=== PATIENT | female | born 1995 | race African-American/Black ===

== ENCOUNTER 2018-01-23 18:18 | Inpatient (IN) ==
[2018-01-23] MEDS ORDERED: Sod Chloride 0.9% Inj 1,000 ML IV.SIG ONE (18:40)
[2018-01-23 19:38] LABS: Anion Gap 10 meq/L (5-15); Blood Urea Nitrogen 5 mg/dL (7-18); Calcium 8.5 mg/dL (8.5-10.1); Carbon Dioxide 23.3 meq/L (21.0-32.0); Chloride 107 meq/L (98-107); Glomerular Filtration Rate Greater Than 89 mL/min (>89); Glucose,Random 87 mg/dL (74-106); Potassium 3.8 meq/L (3.5-5.1); Sodium 140 meq/L (136-145)
[2018-01-23 20:11] LABS: Baso % (Auto) 0.4 % (0.0-2.0); Eos # (Auto) 0.1 th/mm3 (0.0-0.4); Eos % (Auto) 2.1 % (0.0-4.0); Hematocrit 25.4 % (35.0-46.0); Hemoglobin 7.4 gm/dL (11.6-15.3); Lymph # (Auto) 1.7 th/mm3 (1.0-4.8); Lymph % (Auto) 25.4 % (9.0-44.0); Mean Corpuscular Hemoglobin 18.8 pg (27.0-34.0); Mean Corpuscular Volume 64.3 fL (80.0-100.0); Mean Platelet Volume 8.3 fL (7.0-11.0); Mono # (Auto) 0.5 th/mm3 (0.0-0.9); Mono % (Auto) 7.8 % (0.0-8.0); Neut # (Auto) 4.4 th/mm3 (1.8-7.7); Neut % (Auto) 64.3 % (16.0-70.0); Platelet Count 421 th/mm3 (150-450); Red Blood Count 3.95 mil/mm3 (4.00-5.30); White Blood Count 6.9 th/mm3 (4.0-11.0)
[2018-01-23 20:12] LABS: Mean Corpuscular HGB Conc 29.3 % (32.0-36.0)
[2018-01-23 20:50] LABS: Bacteria,Urine Occasional /hpf; Bilirubin,Urine Negative (Negative); Clarity,Urine Cloudy (Clear); Color,Urine Yellow (Yellw/Straw); Glucose,Urine (UA) Negative (Negative); Hyaline Casts,Urine 8 /lpf (0-3); Leukocyte Esterase,Urine Moderate (Negative); Mucus,Urine Few /lpf (Occasional); Nitrite,Urine Negative (Negative); Specific Gravity,Urine 1.008 (1.002-1.035); Squamous Epithelial Cell,Urine 11 /hpf (0-5)
--- NOTE | 2018-01-23 21:00 | CT ---
EXAM DATE: 01/23/2018 8:58 PM EDT AGE/SEX: 22 years / Female INDICATIONS: Syncopal episode, cephalgia. CLINICAL DATA: This is the patient's initial encounter. Patient reports that signs and symptoms have been present for 1 day and indicates a pain score of 7/10. MEDICAL/SURGICAL HISTORY: Hypertension. None. RADIATION DOSE: 36.42 CTDI (mGy) COMPARISON: No prior exams available for comparison. TECHNIQUE: CT of the head without contrast. Using automated exposure control and adjustment of the mA and/or kV according to patient size, radiation dose was kept as low as reasonably achievable to ob tain optimal diagnostic quality images. DICOM format image data is available electronically for revi ew and comparison. FINDINGS: Cerebrum: The ventricles are normal for age. No evidence of midline shift, mass lesion, hemorrhage or acute infarction. No extraaxial fluid collections are seen. Posterior Fossa: The cerebellum and brainstem are intact. The 4th ventricle is midline. The cerebe llopontine angle is unremarkable. Extracranial: The visualized portion of the orbits is intact. Skull: The calvaria is intact. No evidence of skull fracture. CONCLUSION: 1. Negative noncontrast CT brain. . Electronically signed by: Alex Carpio MD 01/23/2018 8:59 PM EDT
--- NOTE | 2018-01-23 21:06 | ED ---
HPI General Chief Complaint: Syncope Stated Complaint: Syncope Time Seen by Provider: 01/23/18 18:40 Source: patient Mode of arrival: EMS Limitations: no limitations History of Present Illness HPI narrative: The patient is 22 years old and arrives here with complaint of syncope. She arrives by EMS. 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 No fecal or urinary incontinence. No history of seizures. The patient reports headaches over the past few days. No chest pain prior to the syncope event. Patient reports normal activity and state of health over the past few days and into today's workout routine. No prior episode of syncope. Past medical history of significance. She reports occasional black stool. Patient reports heavy menstruation. MD complaint: loss of consciousness -: second(s) Prodromal symptoms: none Witnessed: yes - by bystander Context: during exertion Injuries sustained associated with event: none Current symptoms: headache Related Data Home Medications Medication Instructions Recorded Confirmed No Known Home Medications 01/23/18 01/23/18 Allergies Allergy/AdvReac Type Severity Reaction Status Date / Time No Known Allergies Allergy Verified 01/23/18 18:28 Review of Systems ROS: all other systems reviewed are negative [facility] Medical History Medical History Hypertension (Acute) Social History Social History Substance History: No History of Abuse Second Hand Smoke Exposure: No Smoking Status: Never smoker How Often Do You Have a Drink Containing Alcohol: Never Recent Travel in [facility] within the Last 8 Weeks: No Recent Out of Country Travel within the Last 8 Weeks: No Immunization History Tetanus Immunization: Unsure Exam Narrative Exam Narrative: GENERAL: 22-year-old female pleasant well-nourished well- developed SKIN: Focused skin assessment warm/dry. HEAD: Atraumatic. Normocephalic. EYES: Pupils equal and round. No scleral icterus. No injection or drainage. ENT: No nasal bleeding or discharge. Mucous membranes pink and moist. NECK: Trachea midline. No JVD. CARDIOVASCULAR: Heart rate approximately 90. Regular rhythm. RESPIRATORY: No accessory muscle use. Clear to auscultation. Breath sounds equal bilaterally. GASTROINTESTINAL: Abdomen soft, non-tender, nondistended. Hepatic and splenic margins not palpable. MUSCULOSKELETAL: No obvious deformities. No clubbing. No cyanosis. No edema. NEUROLOGICAL: Awake and alert. No obvious cranial nerve deficits. Motor grossly within normal limits. Normal speech. PSYCHIATRIC: Appropriate mood and affect; insight and judgment normal. Course Reevaluation(s) Reevaluation #1: Patient resting comfortably. Urinalysis specimen provided. Patient denies a history of anemia. She has no known record of blood draw with results she can recall. She reports occasional black stool and heavy menstruation. She reports blood in urine occasionally. Time: 20:15 Initial Documented Vital Signs Pulse Rate 84 01/23/18 18:24 Respiratory Rate 18 01/23/18 18:24 Pulse Oximetry 99 01/23/18 18:24 Last Documented Vital Signs Pulse Rate 89 01/23/18 18:59 Respiratory Rate 16 01/23/18 18:59 Blood Pressure 117/72 01/23/18 18:59 Pulse Oximetry 100 01/23/18 18:59 Medical Decision Making MDM Narrative Medical Screen Exam Complete: Yes Emergency Medical Condition: Yes Medical Records Medical records reviewed: Yes I reviewed the patient's medical records. 22-year-old female arrives following syncope event. Workup reveals anemia with a hemoglobin of 7.4. The patient has no prior history of anemia. Etiology of clear. The headache patient complains in the ED and over the past few months could be related to anemia. Admission for blood transfusion and w/u per discretion [facility] . 2 units ordered here in the ED. Case is Dr. Gerber for the hospital service. Lab Data Lab results reviewed: Yes I reviewed the patient's lab results. Result diagrams: 01/23/18 19:00 01/23/18 19:00 Lab Results 01/23/18 01/23/18 01/23/18 Range/Units 19:00 19:00 20:30 WBC 6.9 (4.0-11.0) th/mm3 RBC 3.95 L (4.00-5.30) mil/mm3 Hgb 7.4 L (11.6-15.3) gm/dL Hct 25.4 L (35.0-46.0) % MCV 64.3 L (80.0-100.0) fL MCH 18.8 L (27.0-34.0) pg MCHC 29.3 L (32.0-36.0) % RDW 19.0 H (11.6-17.2) % Plt Count 421 (150-450) th/mm3 MPV 8.3 (7.0-11.0) fL Neut % (Auto) 64.3 (16.0-70.0) % Lymph % (Auto) 25.4 (9.0-44.0) % [place] % (Auto) 7.8 (0.0-8.0) % Eos % (Auto) 2.1 (0.0-4.0) % Baso % (Auto) 0.4 (0.0-2.0) % Neut # (Auto) 4.4 (1.8-7.7) th/mm3 Lymph # (Auto) 1.7 (1.0-4.8) th/mm3 [place] # (Auto) 0.5 (0.0-0.9) th/mm3 Eos # (Auto) 0.1 (0.0-0.4) th/mm3 Baso # (Auto) 0.0 (0.0-0.2) th/mm3 WBC Differential . Differential Comment Auto diff final Sodium 140 (136-145) meq/L Potassium 3.8 (3.5-5.1) meq/L Chloride 107 (98-107) meq/L Carbon Dioxide 23.3 (21.0-32.0) meq/L Anion Gap 10 (5-15) meq/L BUN 5 L (7-18) mg/dL Creatinine 0.64 (0.50-1.00) mg/dL Estimated GFR Greater than 89 (>89) mL/min Random Glucose 87 (74-106) mg/dL Calcium 8.5 (8.5-10.1) mg/dL Troponin I Less than 0.02 L (0.02-0.05) ng/mL Urine Color Yellow (Yellw/Straw) Urine Clarity Cloudy H (Clear) Urine pH 7.0 (5.0-8.5) Ur Specific [place] 1.008 (1.002-1.035) Urine Protein 30 H (Neg-Trace) mg/dL Urine Glucose (UA) Negative (Negative) mg/dL Urine Ketones Negative (Negative) mg/dL Urine Occult Blood Moderate H (Negative) Urine Nitrate Negative (Negative) Urine Bilirubin Negative (Negative) Urine Urobilinogen Less than 2 (Less than 2) mg/dL Ur Leukocyte Esterase Moderate H (Negative) Urine RBC 3 (0-3) /hpf Urine WBC 13 H (0-5) /hpf Ur Squamous Epith Cells 11 (0-5) /hpf Urine Bacteria Occasional H (None) /hpf Hyaline Casts 8 (0-3) /lpf Granular Casts 7 (None) /lpf Urine Mucus Few H (Occasional) /lpf Ur Microscopic Review Not Reportable Urinalysis concerning for UTI ECG Data EKG Prior to Arrival: Yes Attestation: I personally reviewed and interpreted this ECG as follows: Discharge Plan Discharge Disposition Patient Disposition: 30 Still Patient Physicians Team ED Provider: Doc Gr Primary Care Provider: Primary Care ZeinabiBinta Rxs /Orders / Referrals /Forms Prescriptions: No Action No Known Home Medications RF: 0 Discharge Interventions Interventions: Vital Signs Last Done: 01/23/18 18:59 Status ED Status: Admitted Observation Patient Discharge Information Discharge Date/Time: 01/23/18 19:20
[2018-01-23] MEDS ORDERED: Bisacodyl 10 MG Supp RECTAL PRN (21:46)
[2018-01-23] MEDS ORDERED: Acetaminophen 325 MG Tablet PO PRN (21:46)
[2018-01-23] MEDS ORDERED: Temazepam 15 MG Capsule PO PRN (21:46)
--- NOTE | 2018-01-23 21:51 | P.HP ---
History of Present Illness Service: [facility] Primary Care Physician: No Primary Care Physician History of Present Illness: 22-year-old female with no past medical history presents to the emergency department for evaluation of syncopal episode. The patient arrived via EMS. 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 She denies any seizure-like activity or urinary/fecal incontinence. She reports a continuing headache. Denies any chest pain or shortness of breath. Has had positive fatigue for the past several weeks. No abdominal pain. No nausea/vomiting/diarrhea. No fever/ chills. The patient does report that 3 months ago she had some dark, tarry stools that has since resolved. She also reports that she has heavy bleeding with her menses. She is not currently having any vaginal bleeding. Inpatient Certification: I certify that the inpatient services were ordered in accordance with Medicare regulations governing the order. 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 - Medical / Surgical Hx Neg / Unobtainable Surgical History: No Previous Surgery - Medical History Medical History: Medical History (Last Updated 01/23/18 @ 18:27 by Susan Bhatti) Hypertension - Family History Family History: Family History (Last Updated 01/23/18 @ 21:47 by Karen Gerber MD) Other Family history normal - Tobacco History Second Hand Smoke Exposure: No Smoking Status: Never smoker - Alcohol History How Often Do You Have a Drink Containing Alcohol: Never - Substance Use History Substance History: No History of Abuse - Travel History Recent Travel in the [place] Within the Last 8 Weeks: No Recent Travel Out of the Country Within the Last 8 Weeks: No - Immunization History Tetanus Immunization: Unsure Medications and Allergies Allergies Allergy/AdvReac Type Severity Reaction Status Date / Time No Known Allergies Allergy Verified 01/23/18 18:28 Home Medications Medication Instructions Recorded Confirmed Type No Known Home Medications 01/23/18 01/23/18 History Exam Vital signs: Vital Signs 01/23/18 18:24 01/23/18 18:44 01/23/18 18:59 Pulse Rate 84 89 Respiratory Rate 18 16 Blood Pressure 117/72 Pulse Oximetry 99 99 100 Intake & Output 01/23/18 01/23/18 01/24/18 06:59 18:59 06:59 Weight 67.132 kg Narrative: Gen.: No acute distress Head: Normocephalic. Atraumatic. EENT: Pupils equal round and reactive to light. Nose without drainage. Airway intact. Throat without injection. Cardiovascular: Regular rate and rhythm. No murmurs, rubs or gallops. Respiratory: Lungs clear to auscultation bilaterally. No wheezes or rhonchi. Abdomen: Soft, nontender, nondistended. No peritoneal signs. Musculoskeletal: No gross deformities. No edema. Skin: No obvious rashes or erythema. Neuro: Sensory and motor grossly intact. Cranial nerves II through XII grossly intact. Results - Labs CBC & Chem 7: 01/23/18 19:00 01/23/18 19:00 Labs: Laboratory Results - last 24 hr 01/23/18 01/23/18 01/23/18 19:00 19:00 20:30 WBC 6.9 RBC 3.95 L Hgb 7.4 L Hct 25.4 L MCV 64.3 L MCH 18.8 L MCHC 29.3 L RDW 19.0 H Plt Count 421 MPV 8.3 Neut % (Auto) 64.3 Lymph % (Auto) 25.4 [place] % (Auto) 7.8 Eos % (Auto) 2.1 Baso % (Auto) 0.4 Neut # (Auto) 4.4 Lymph # (Auto) 1.7 [place] # (Auto) 0.5 Eos # (Auto) 0.1 Baso # (Auto) 0.0 WBC Differential . Differential Comment Auto diff final Sodium 140 Potassium 3.8 Chloride 107 Carbon Dioxide 23.3 Anion Gap 10 BUN 5 L Creatinine 0.64 Estimated GFR Greater than 89 Random Glucose 87 Calcium 8.5 Troponin I Less than 0.02 L Urine Color Yellow Urine Clarity Cloudy H Urine pH 7.0 Ur Specific [place] 1.008 Urine Protein 30 H Urine Glucose (UA) Negative Urine Ketones Negative Urine Occult Blood Moderate H Urine Nitrate Negative Urine Bilirubin Negative Urine Urobilinogen Less than 2 Ur Leukocyte Esterase Moderate H Urine RBC 3 Urine WBC 13 H Ur Squamous Epith Cells 11 Urine Bacteria Occasional H Hyaline Casts 8 Granular Casts 7 Urine Mucus Few H Ur Microscopic Review Not Reportable MTS Gel Crossmatch 01/23/18 20:45 WBC RBC Hgb Hct MCV MCH MCHC RDW Plt Count MPV Neut % (Auto) Lymph % (Auto) [place] % (Auto) Eos % (Auto) Baso % (Auto) Neut # (Auto) Lymph # (Auto) [place] # (Auto) Eos # (Auto) Baso # (Auto) WBC Differential Differential Comment Sodium Potassium Chloride Carbon Dioxide Anion Gap BUN Creatinine Estimated GFR Random Glucose Calcium Troponin I Urine Color Urine Clarity Urine pH Ur Specific [place] Urine Protein Urine Glucose (UA) Urine Ketones Urine Occult Blood Urine Nitrate Urine Bilirubin Urine Urobilinogen Ur Leukocyte Esterase Urine RBC Urine WBC Ur Squamous Epith Cells Urine Bacteria Hyaline Casts Granular Casts Urine Mucus Ur Microscopic Review MTS Gel Crossmatch See Detail - Imaging Impressions Head CT 01/23/18 18:40 CONCLUSION: 1. Negative noncontrast CT brain. . Caprini VTE Risk Assessment Caprini VTE Risk Assessment: Moderate/High Risk (score >= 2) Caprini Risk Assessment Model: Point Value = 1 Point Value = 2 Point Value = 3 Point Value = 5 Age 41-60 Minor surgery BMI > 25 kg/m2 Swollen legs Varicose veins or History of unexplained or recurrent spontaneous Oral contraceptives or hormone replacement Sepsis (< 1 month) Serious lung disease, including pneumonia (< 1 month) Abnormal pulmonary function Acute myocardial infarction Congestive heart failure (< 1 month) History of inflammatory bowel disease Medical patient at bed rest Age 61-74 Arthroscopic surgery Major open surgery (> 45 min) Laparoscopic surgery (> 45 min) Malignancy Confined to bed (> 72 hours) Immobilizing plaster cast Central venous access Age >= 75 History of VTE Family history of VTE Factor V Leiden Prothrombin [id number] Lupus anticoagulant Anticardiolipin antibodies Elevated serum homocysteine Heparin-induced thrombocytopenia Other congenital or acquired thrombophilia Stroke (< 1 month) Elective arthroplasty Hip, pelvis, or leg fracture Acute spinal cord injury (< 1 month) Prophylaxis Regimen: Total Risk Factor Score Risk Level Prophylaxis Regimen 0-1 Low Early ambulation 2 Moderate Order ONE of the following: *Sequential Compression Device (SCD) *Heparin 5000 units SQ BID 3-4 Higher Order ONE of the following medications: *Heparin 5000 units SQ TID *Enoxaparin/Lovenox 40 mg SQ daily (WT < 150 kg, CrCl > 30 mL/min) *Enoxaparin/Lovenox 30 mg SQ daily (WT < 150 kg, CrCl > 10-29 mL/min) *Enoxaparin/Lovenox 30 mg SQ BID (WT < 150 kg, CrCl > 30 mL/min) AND/OR *Sequential Compression Device (SCD) 5 or more Highest Order ONE of the following medications: *Heparin 5000 units SQ TID (Preferred with Epidurals) *Enoxaparin/Lovenox 40 mg SQ daily (WT < 150 kg, CrCl > 30 mL/min) *Enoxaparin/Lovenox 30 mg SQ daily (WT < 150 kg, CrCl > 10-29 mL/min) *Enoxaparin/Lovenox 30 mg SQ BID (WT < 150 kg, CrCl > 30 mL/min) AND *Sequential Compression Device (SCD) Assessment and Plan - Plan Assessment/plan: 1. Symptomatic anemia/syncope Head CT negative for acute process H&H 7.4/25.4, no basis for comparison Transfuse 2 units packed red blood cells Hemoccult negative in the emergency department Suspect secondary to menorrhagia, patient will need outpatient [employer] follow-up FEN Regular diet Electrolytes: Monitor and replete as needed
[2018-01-24] MEDS: Sod Chloride 0.9% Inj 1,000 ML IV.CONT SCH ×2 (02:26→08:16)
--- NOTE | 2018-01-24 08:29 | P.PNIM ---
Subjective Interval history: f/u; syncope in no acute distress. resting comfortably with no dizziness, chest pain or sob. reports occasional dysuria. Physical Exam Vital signs: Vital Signs 01/23/18 18:24 01/23/18 18:44 01/23/18 18:59 Temperature Pulse Rate 84 89 Respiratory Rate 18 16 Blood Pressure 117/72 Pulse Oximetry 99 99 100 01/23/18 23:51 01/24/18 00:09 01/24/18 02:24 Temperature 98.3 F 98.2 F 97.9 F Pulse Rate 85 76 78 Respiratory Rate 16 16 14 Blood Pressure 111/57 L 122/64 125/74 Pulse Oximetry 100 100 01/24/18 07:30 Temperature Pulse Rate 68 Respiratory Rate 15 Blood Pressure 124/79 Pulse Oximetry 100 Intake & Output 01/23/18 01/24/18 01/24/18 18:59 06:59 18:59 Intake Total 1400 / 1400 600 / 600 Balance 1400 / 1400 600 / 600 Weight 67.132 kg Intake: IV 1000 / 1000 600 / 600 NS Inj 1,000 ML @ 100 mls/hr IV 600 / 600 .CONT .Q10H [facility] Rx#:[id number] Intake (Blood Product) Amt 400 / 400 Rbc As-3 Leukoreduced Unit 400 / 400 [id number] - Constitutional no acute distress - Routine Respiratory Exam Present: CTA bilaterally - Routine Cardiovascular Exam Present: RRR - Routine Abdominal Exam Present: soft - Routine Extremities Exam Comments: no pedal edema. - Routine Neurological Exam Present: alert, oriented X3 Results - Labs CBC & Chem 7: 01/23/18 19:00 01/23/18 19:00 Laboratory Results - last 24 hr 01/23/18 01/23/18 01/23/18 19:00 19:00 20:30 WBC 6.9 RBC 3.95 L Hgb 7.4 L Hct 25.4 L MCV 64.3 L MCH 18.8 L MCHC 29.3 L RDW 19.0 H Plt Count 421 MPV 8.3 Neut % (Auto) 64.3 Lymph % (Auto) 25.4 [place] % (Auto) 7.8 Eos % (Auto) 2.1 Baso % (Auto) 0.4 Neut # (Auto) 4.4 Lymph # (Auto) 1.7 [place] # (Auto) 0.5 Eos # (Auto) 0.1 Baso # (Auto) 0.0 WBC Differential . Differential Comment Auto diff final Sodium 140 Potassium 3.8 Chloride 107 Carbon Dioxide 23.3 Anion Gap 10 BUN 5 L Creatinine 0.64 Estimated GFR Greater than 89 Random Glucose 87 Calcium 8.5 Troponin I Less than 0.02 L Urine Color Yellow Urine Clarity Cloudy H Urine pH 7.0 Ur Specific [place] 1.008 Urine Protein 30 H Urine Glucose (UA) Negative Urine Ketones Negative Urine Occult Blood Moderate H Urine Nitrate Negative Urine Bilirubin Negative Urine Urobilinogen Less than 2 Ur Leukocyte Esterase Moderate H Urine RBC 3 Urine WBC 13 H Ur Squamous Epith Cells 11 Urine Bacteria Occasional H Hyaline Casts 8 Granular Casts 7 Urine Mucus Few H Ur Microscopic Review Not Reportable Blood Type Blood Type Recheck Antibody Screen MTS Gel Crossmatch 01/23/18 20:45 WBC RBC Hgb Hct MCV MCH MCHC RDW Plt Count MPV Neut % (Auto) Lymph % (Auto) [place] % (Auto) Eos % (Auto) Baso % (Auto) Neut # (Auto) Lymph # (Auto) [place] # (Auto) Eos # (Auto) Baso # (Auto) WBC Differential Differential Comment Sodium Potassium Chloride Carbon Dioxide Anion Gap BUN Creatinine Estimated GFR Random Glucose Calcium Troponin I Urine Color Urine Clarity Urine pH Ur Specific [place] Urine Protein Urine Glucose (UA) Urine Ketones Urine Occult Blood Urine Nitrate Urine Bilirubin Urine Urobilinogen Ur Leukocyte Esterase Urine RBC Urine WBC Ur Squamous Epith Cells Urine Bacteria Hyaline Casts Granular Casts Urine Mucus Ur Microscopic Review Blood Type A Positive Blood Type Recheck Required Antibody Screen Negative MTS Gel Crossmatch See Detail - Imaging Impressions Head CT 01/23/18 18:40 CONCLUSION: 1. Negative noncontrast CT brain. . Assessment and Plan - Plan 1. Symptomatic anemia/syncope Head CT negative for acute process H&H 7.4/25.4, no basis for comparison Transfused with 2 units packed red blood cells Hemoccult negative in the emergency department Suspect secondary to menorrhagia, patient will need outpatient [employer] follow-up will check iron panel 2- possible UTI- will switch to oral cipro upon discharge. Discharge Planning: dc home today when the blood work today is resulted. f/u; pcp and [employer] ( this was d/w the patient). see med list.
[2018-01-24 10:58] LABS: Baso % (Auto) 0.5 % (0.0-2.0); Eos # (Auto) 0.1 th/mm3 (0.0-0.4); Eos % (Auto) 1.3 % (0.0-4.0); Hematocrit 31.3 % (35.0-46.0); Hemoglobin 9.7 gm/dL (11.6-15.3); Lymph # (Auto) 1.9 th/mm3 (1.0-4.8); Lymph % (Auto) 25.7 % (9.0-44.0); Mean Corpuscular HGB Conc 31.2 % (32.0-36.0); Mean Corpuscular Hemoglobin 21.9 pg (27.0-34.0); Mean Corpuscular Volume 70.4 fL (80.0-100.0); Mono # (Auto) 0.6 th/mm3 (0.0-0.9); Mono % (Auto) 7.8 % (0.0-8.0); Neut # (Auto) 4.7 th/mm3 (1.8-7.7); Neut % (Auto) 64.7 % (16.0-70.0); Platelet Count 403 th/mm3 (150-450); Red Blood Count 4.44 mil/mm3 (4.00-5.30); Red Cell Distribution Width 24.2 % (11.6-17.2); White Blood Count 7.2 th/mm3 (4.0-11.0)
[2018-01-24 11:24] LABS: Anion Gap 8 meq/L (5-15); Blood Urea Nitrogen 4 mg/dL (7-18); Calcium 8.7 mg/dL (8.5-10.1); Carbon Dioxide 23.7 meq/L (21.0-32.0); Chloride 107 meq/L (98-107); Glomerular Filtration Rate Greater Than 89 mL/min (>89); Glucose,Random 71 mg/dL (74-106); Potassium 3.8 meq/L (3.5-5.1); Sodium 139 meq/L (136-145)
[2018-01-24 12:23] LABS: % Iron Saturation 32.2 % (20-50)
--- NOTE | 2018-01-24 12:38 | ECG ---
Date Performed: 01/23/2018 Time Performed: 18:58:48 PTAGE: 22 years EKG: SINUS TACHYCARDIA ABNORMAL RHYTHM ECG NO PREVIOUS TRACING DOCTOR: Shane Mcallister Interpretating Date/Time 01/24/2018 12:35:43
== END 2018-01-24 15:20 | disposition home or self-care (01) ==
LOC: NEPD 18:18 → NEDA 18:18 → NEPD 19:20 → NEDA 01-24 02:31 → NEDH 01-24 07:26 → N04 01-24 12:20
PROVIDERS: ADMIT Internal Medicine; ATTEND Internal Medicine